=== PATIENT | female | born 1965 | race Caucasian/White ===

== ENCOUNTER 2017-02-15 10:03 | Day surgery (SDC) | payer BC ==
[~2017-02-15] VITALS: Ht 160 cm; Wt 85.7 kg
--- NOTE | 2017-02-15 12:58 | Operative Note ---
Upper GI Endoscopy Procedure date: 02/15/17 Date of : 67 Procedure:Upper GI Endoscopy Esophagogastroduodenoscopy with cold biopsies and TTS balloon dilation Indications: Mrs. Betts is a 51-year-old female who has had long-standing dyspepsia. The patient did have cholecystectomy in May 2015. She has had marked stress and her mother of pancreatic cancer and she is caring for her father. She has intermittent dysphagia. She reports bloating and early satiety. Sucralfate has not improved her symptoms. She was not responding to Prilosec. I had recommended metoclopramide and probiotic as well as the digestive supplement Creon. She did have normal liver and pancreatic chemistries as well as normal iron and B12 levels. Her last EGD was 2012. Performing Provider: Amira Victor MD Referring Provider: Adarsh Canales M.D. Sedation: MAC sedation Procedure: Prior to the procedure, a history and physical exam was performed, and patients medications and allergies were reviewed. The risks and benefits of the procedure and the sedation options and risks were discussed with the patient. All questions were answered and informed consent was obtained. The patient was brought to the procedure room. Patient identification and proposed procedure were verified by the physician and the nurse. The patient was placed in a left lateral decubitus position and the scope was passed under direct vision. Throughout the procedure, the patient's blood pressure, pulse, and oxygen saturations were monitored continuously. The endoscope was introduced through the mouth, and advanced to the second part of duodenum. The upper GI endoscopy was accomplished without difficulty. The patient tolerated the procedure well. Findings: The scope was passed directly into the upper esophagus and advanced to the third portion of the duodenum. The post bulbar duodenum and duodenal bulb were normal with normal mucosa and conniventes. The scope was withdrawn through a normal duodenal bulb and pylorus into the stomach. There was mild linear erythema of the antrum consistent with mild linear reactive gastritis. The remainder of the antrum, body and fundus of the stomach were grossly normal. Upon retroflexion there was a 2-3 cm hiatal hernia. 2 biopsies were taken in the antrum and along the lesser curvature for histology. The scope was then withdrawn into the esophagus. There were 2 very small linear superficial erosions distally consistent with grade A reflux esophagitis. There were tertiary contractions and evidence of mild esophageal dysmotility. The entire esophagus was dilated to 60 [place]/20 mm with a TTS hydrostatic balloon. There was some resistance at the cricopharyngeus. Immediate complications: None EBL (ml): 0 Impression: 1. Cricopharyngeal spasm status post dilation to 20 mm 2. Grade A reflux esophagitis with mild esophageal dysmotility and a small 2-3 cm hiatal hernia 3. Mild linear reactive gastritis Recommendations: I am going to switch to another PPI and discussed the addition of treatment for visceral sensitivity. I will follow-up the biopsies. at [id number]
[2017-02-15 14:19] VITALS: BP 136/87
== END 2017-02-15 13:30 | disposition home or self-care (01) ==
LOC: SDC 10:03
PROVIDERS: Internal Medicine Gastroenterology
PROC: 0D758ZZ Dilation of Esophagus, Via Natural or Artificial Opening Endoscopic (ICD-10-PCS; 2017-02-15)
PROC: 0DB78ZX Excision of Stomach, Pylorus, Via Natural or Artificial Opening Endoscopic, Diagnostic (ICD-10-PCS; principal; 2017-02-15 11:30)
DX: R10.13 Epigastric pain (principal); K21.9 Gastro-esophageal reflux disease without esophagitis; K44.9 Diaphragmatic hernia without obstruction or gangrene; K22.4 Dyskinesia of esophagus; J39.2 Other diseases of pharynx
CPT/HCPCS: C1726